=== PATIENT | female | born 1965 | race Caucasian/White ===

== ENCOUNTER 2016-09-15 06:16 | Observation (INO) | payer BC ==
[2016-09-10 14:55] LABS: BASOPHILS 0.7 %; BASOPHILS ABSOLUTE 0.06 10/3/uL (0.0-0.16); EOSINOPHILS 3.4 %; EOSINOPHILS ABSOLUTE 0.28 10/3/uL (0.0-0.53); HEMATOCRIT 36.3 % (36.0-48.0); HEMOGLOBIN 12.3 g/dL (12.0-16.0); IMMATURE GRANULOCYTES 0.1 %; IMMATURE GRANULOCYTES ABSOLUTE 0.01 10/3/uL (0.0-0.11); LYMPHOCYTES 20.4 %; LYMPHOCYTES ABSOLUTE 1.68 10/3/uL (0.67-4.30); MEAN CORPUS HGB CONC 33.9 g/dL (32.0-36.0); MEAN CORPUSCULAR HEMOGLOB 31.4 pg (26.0-34.0); MEAN CORPUSCULAR VOLUME 92.6 fL (80-100); MEAN PLATELET VOLUME 8.5 fL (9.2-13.0); MONOCYTES 10.7 %; MONOCYTES ABSOLUTE 0.88 10/3/uL (0.21-1.20); NEUTROPHILS 64.7 %; NEUTROPHILS ABSOLUTE 5.33 10/3/uL (2.02-8.40); PLATELET COUNT 406 10/3/uL (150-400); RED CELL COUNT 3.92 10/6/uL (4.0-5.6); WHITE BLOOD CELLS 8.2 10/3/uL (4.5-10.5)
[2016-09-10 14:56] LABS: MANUAL DIFF NO %
[2016-09-10 15:10] LABS: A/G RATIO 1.2 (0.7-1.9); ALBUMIN 3.6 G/DL (3.5-5.0); ALKALINE PHOSPHATASE 94 U/L (45-117); BUN (BLOOD UREA NITROGEN) 13 MG/DL (6-23); CALCIUM, SERUM 8.6 MG/DL (8.5-10.4); CHLORIDE, SERUM 100 MMOL/L (96-112); CO2 (CARBON DIOXIDE) 27 MMOL/L (24-34); CREATININE 0.89 MG/DL (0.55-1.02); GFR AFRICAN AMERICAN 87 ML/MIN (>=60); GFR NON AFRICAN AMERICAN 75 ML/MIN (>=60); GLOBULIN 3.1 G/DL (2.5-4.1); GLUCOSE, SERUM 92 MG/DL (60-99); POTASSIUM, SERUM 3.6 MMOL/L (3.5-5.3); SGOT(AST) 13 U/L (5-40); SGPT(ALT) 25 U/L (5-65); SODIUM, SERUM 137 MMOL/L (135-148); TOTAL BILIRUBIN 0.4 MG/DL (0-1.2); TOTAL PROTEIN 6.7 G/DL (6.0-8.5)
--- NOTE | ~2016-09-15 | OP ---
Record Of Operation [facility] [address] [place]. [address] NAME: MARK RODRIGUEZ : 63 STATUS : ADM Kings PAT#: [id number] AGE: 50 ADM/REG DATE : 09/15/16 MR#: [id number] REPORT SERV DATE: 09/15/16 DICTATED BY: MARÍA PARR III DATE: 09/15/16 REPORT STATUS : Draft TRANSCRIBED BY: MODL DATE: 09/15/16 DATE OF PROCEDURE: 09/15/2016 PREOPERATIVE DIAGNOSIS: Symptomatic incisional hernia. POSTOPERATIVE DIAGNOSIS: Symptomatic incisional hernia. PROCEDURE: Repair of incisional hernia with Ventralight Prolene mesh. SURGEON: María Parr M.D. ANESTHESIA: General with intubation. COMPLICATIONS: None. ESTIMATED BLOOD LOSS: Less than 20 mL. SPECIMENS: Hernia sac. DRAINS: Joaquin-Hui in subcutaneous tissue. LAP AND SPONGE COUNT: Correct x3. BRIEF HISTORY: This 50-year-old female presented with a symptomatic incisional hernia located over her midabdomen. This related to a previous laparoscopic gastric band procedure. It was felt that repair of this hernia was indicated. This procedure, the risks, benefits, and alternatives, including not limited to the risk for bleeding, infection, enterotomy, injury to any abdominal structure, postop small bowel obstruction, ileus, recurrence of the hernia, seroma formation, hematoma formation, infection of the mesh or enterocutaneous fistula requiring removal of mesh, and unforeseen complications including deep venous thrombosis, pulmonary embolus, myocardial infarction, stroke, pneumonia, and , were fully and completely explained to the patient prior to surgery. The fact that this was a major operation with risk for major morbidity and mortality, no guarantee for relief of her symptoms was explained to her. The expected length of recovery was explained. The patient had questions, which were answered. She fully understood the risks and agreed to surgery as planned. DESCRIPTION OF PROCEDURE: After being properly identified and after discussing risks of surgery with her again in the preoperative area and after identifying the hernia with her help in the preoperative area, the patient was taken to the operating room and placed in the supine position on the operating room table. General anesthesia was administered. She was intubated without difficulty. The abdomen was prepped and draped sterilely in the usual fashion. After an appropriate "time-out" per JCAHO standards, a small midline incision was made in the midabdomen, directly over the hernia, midway between the umbilicus and xiphoid process. The incision was continued through the subcutaneous tissue. Hemostasis was controlled with cautery. The incision was continued down to the fascial defect. The hernia Record Of [facility] [address] [place]. [address] NAME: MARK RODRIGUEZ : 63 STATUS : ADM Kings PAT#: [id number] AGE: 50 ADM/REG DATE : 09/15/16 MR#: [id number] REPORT SERV DATE: 09/15/16 DICTATED BY: MARÍA PARR III DATE: 09/15/16 REPORT STATUS : Draft TRANSCRIBED BY: RAPHAEL DATE: 09/15/16 sac was noted extending through the midline. The fascial defect was about 3 cm in size. Using sharp dissection, the hernia sac was dissected free from the fascia and surrounding tissues. There was some omentum, which was chronically incarcerated within the hernia. Using careful manipulation, the omentum was reduced back into the abdominal cavity. The skin and subcutaneous tissue around the defect anteriorly was fully mobilized for several centimeters. There were some adhesions between the omentum and the underside of the fascia posteriorly, and these adhesions were carefully defined posteriorly so as to fully define the fascial defect anteriorly and posteriorly. Hemostasis was assured. A Ventralight Prolene mesh was then selected and cut to the appropriate size for the defect. The mesh was placed posterior to the defect so as to overlap the edges of the defect by several centimeters. The mesh was then secured around the edges of the fascia with short segments of interrupted #1 Prolene sutures. Upon completion of this, the mesh laid nicely beneath the defect in an overlay fashion. It was not twisted or kinked in any way, it was not under any tension. The wound was irrigated copiously with saline. Hemostasis was assured. A Joaquin-Hui drain was brought through a separate stab wound and placed in the subcutaneous tissue. The subcutaneous tissue was closed with running 3-0 chromic suture. The skin was closed with a running subcuticular 4-0 Monocryl stitch. The incision was injected with 0.5% Marcaine. Dressings were applied. Anesthesia was reversed. The patient was taken to the recovery room in stable condition. She tolerated the procedure well. Her family was informed of results of surgery. The patient will remain in the hospital for postoperative care. RHJ/RAPHAEL María Parr III, M.D. / [id number] CC: María Parr III, M.D.
--- NOTE | ~2016-09-15 | PREOPHP ---
PreOp History and Physical [address] [place]. [address] NAME: MARK RODRIGUEZ : 63 STATUS : ADM Kings PAT#: [id number] AGE: 50 ADM/REG DATE : 09/15/16 MR#: [id number] REPORT SERV DATE: 09/16/16 DICTATED BY: MARÍA NG III DATE: 08/12/16 REPORT STATUS : Draft TRANSCRIBED BY: RAPHAEL DATE: 08/12/16 HISTORY OF PRESENT ILLNESS: This 50-year-old female comes to the operating room for repair of symptomatic chronically incarcerated mid abdominal hernia. The patient has a large ventral hernia over her mid abdomen. This is located midway between the umbilicus and xiphoid process. The hernia has been present for about 5 years. Recently over the last month, the hernia has become more painful and symptomatic and it has become larger. The patient presented to the emergency room recently because of pain associated with this hernia. She comes now for elective repair of this hernia. PAST MEDICAL HISTORY: 1. Hypertension. 2. Gastroesophageal reflux disease. 3. Anxiety. MEDICATIONS: 1. Omeprazole. 2. Triamterene. 3. Celexa. 4. Aspirin. 5. Estradiol. ALLERGIES: NONE. PAST SURGICAL HISTORY: Includes laparoscopic gastric band procedure, cholecystectomy, and hysterectomy. FAMILY HISTORY: Positive for bladder cancer and heart disease. SOCIAL HISTORY: The patient has a history of tobacco abuse. She has a history of alcohol use. REVIEW OF SYSTEMS: The patient's 14-point review of systems is otherwise unremarkable. PHYSICAL EXAMINATION: GENERAL: This is an obese female, in no acute distress. She is alert and oriented x3. VITAL SIGNS: Blood pressure 122/70, pulse 94, and temperature 97.8. HEENT: Unremarkable. Cranial nerves 2 through 12 are normal. LUNGS: Clear. CARDIAC: Normal. ABDOMEN: Soft and nontender. The patient has a palpable ventral hernia in the midline, midway between the umbilicus and xiphoid process. This is tender. It is not completely reducible. EXTREMITIES: Normal. LABORATORY DATA: CT scan of the abdomen and pelvis shows a fat containing ventral hernia corresponding to the palpable hernia. PreOp History and Physical [address] [address] NAME: MARK RODRIGUEZ : 63 STATUS : ADM Kings PAT#: [id number] AGE: 50 ADM/REG DATE : 09/15/16 MR#: [id number] REPORT SERV DATE: 09/16/16 DICTATED BY: MARÍA NG III DATE: 08/12/16 REPORT STATUS : Draft TRANSCRIBED BY: RAPHAEL DATE: 08/12/16 ASSESSMENT: 1. This is a 50-year-old female with chronically incarcerated symptomatic ventral hernia. 2. Obesity. 3. Hypertension. 4. Anxiety. 5. Gastroesophageal reflux disease. PLAN: The patient comes to the operating room now for repair of this incisional hernia. This procedure, the risks, benefits, and alternatives, including not limited to the risk for bleeding, infection, enterotomy, injury to abdominal structure, postop small bowel obstruction, ileus, recurrence of the hernia, seroma formation, hematoma formation, infection of the mesh, or enterocutaneous fistula requiring removal of the mesh, and unforeseen complications including deep venous thrombosis, pulmonary embolus, myocardial infarction, stroke, pneumonia, and , have been explained to the patient prior to surgery. The fact that this is a major operation with risk for major morbidity and mortality has been explained as well as expected length of recovery. The patient's questions have been answered. She clearly understands the risks and agrees to the surgery as planned. PORSCHE/RAPHAEL María Ng III, M.D. / [id number] CC: María Ng III, M.D.
[~2016-09-15 06:16] MED LIST: ACET500CAP PO; CELEXA40 MG PO; IBU-200200 MG PO; MAX25 PO; PRILOSEC40 MG PO; THERA M PLUS PO; VIVELLE SY0.1 MG/24 TOP
[2016-09-16 04:16] LABS: BASOPHILS 0.2 %; BASOPHILS ABSOLUTE 0.02 10/3/uL (0.0-0.16); EOSINOPHILS 0.5 %; EOSINOPHILS ABSOLUTE 0.05 10/3/uL (0.0-0.53); HEMATOCRIT 36.1 % (36.0-48.0); HEMOGLOBIN 12.1 g/dL (12.0-16.0); IMMATURE GRANULOCYTES 0.3 %; IMMATURE GRANULOCYTES ABSOLUTE 0.03 10/3/uL (0.0-0.11); LYMPHOCYTES 19.8 %; MEAN CORPUS HGB CONC 33.5 g/dL (32.0-36.0); MEAN CORPUSCULAR HEMOGLOB 31.5 pg (26.0-34.0); MEAN PLATELET VOLUME 8.6 fL (9.2-13.0); MONOCYTES 4.8 %; MONOCYTES ABSOLUTE 0.51 10/3/uL (0.21-1.20); NEUTROPHILS 74.4 %; NEUTROPHILS ABSOLUTE 7.92 10/3/uL (2.02-8.40); PLATELET COUNT 394 10/3/uL (150-400); RED CELL COUNT 3.84 10/6/uL (4.0-5.6); WHITE BLOOD CELLS 10.6 10/3/uL (4.5-10.5)
[2016-09-16 04:17] LABS: MANUAL DIFF NO %
[2016-09-16] MEDS ORDERED: PERCOCET 7.5/321 TAB PO (08:46)
== END 2016-09-16 10:14 | disposition home or self-care (01) ==
LOC: SDC 06:16 → SDC/OF 10:14 → 5SO 13:39
PROVIDERS: Surgery
PROC: 0WUF0JZ Supplement Abdominal Wall with Synthetic Substitute, Open Approach (ICD-10-PCS; principal; 2016-09-15 08:00)
DX: K43.2 Incisional hernia without obstruction or gangrene (principal); I10 Essential (primary) hypertension; K21.9 Gastro-esophageal reflux disease without esophagitis; F32.9 Major depressive disorder, single episode, unspecified; E66.9 Obesity, unspecified; Z87.891 Personal history of nicotine dependence; Z98.84 Bariatric surgery status; Z90.710 Acquired absence of both cervix and uterus
CPT/HCPCS: 71020; 80053; 85025; 87641; 88302; 93005; 96374; 96375; 96376; A9270-GY; C1781; G0378; J0690; J1170; J1885; J2250; J2405; J2710; J2795; J3010